=== PATIENT | female | born 1965 | race African-American/Black ===

== ENCOUNTER 2018-06-08 09:00 | Inpatient (IN) | payer OTHER ==
[~2018-06-08] VITALS: Ht 182.9 cm; Wt 134.5 kg
[2018-06-08] MEDS ORDERED: IV NORMAL SALINE 1,000ML 1,000 ML IV SCH (09:11)
[2018-06-08 09:28] LABS: BASO % 1 % (0-3); EOS # 0.1 x10^3/uL (0.0-0.7); EOS % 2 % (0-3); HEMATOCRIT 39.3 % (36.0-47.0); HEMOGLOBIN 13.1 g/dL (12.0-15.5); LYMPH # 2.2 x10^3/uL (1.0-4.8); LYMPH % 32 % (24-48); MEAN CORPUSCULAR HEMOGLOBIN 31 pg (25-35); MEAN CORPUSCULAR HGB CONC 33 g/dL (31-37); MEAN CORPUSCULAR VOLUME 92 fL (79-100); MONO # 0.6 x10^3/uL (0.0-1.1); MONO % 8 % (0-9); NEUT # 3.8 x10^3uL (1.8-7.7); NEUT % 57 % (31-73); PLATELET COUNT 192 x10^3/uL (140-400); RED BLOOD COUNT 4.25 x10^6/uL (3.50-5.40); RED CELL DISTRIBUTION WIDTH 13.3 % (11.5-14.5); WHITE BLOOD COUNT 6.7 x10^3/uL (4.0-11.0)
--- NOTE | 2018-06-08 09:30 | PHYS DOC ---
Adult General Chief Complaint Chief Complaint: CHEST PAIN HPI HPI 53-year-old female presents with anterior chest pain. She describes the pain as a throbbing feeling in her central chest. She woke up around 7:30, 2 hours ago with this pain. She went ahead and took her carvedilol and lisinopril, but not aspirin. Patient has had some increasing shortness of breath last couple of days. She denies diaphoresis. She has a history of CHF. She was worked up for CHF at the beginning of this year. 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 Patient says that she has been feeling more uncomfortable the last couple of days. She is sleeping extra pillows. She has also had a dry cough. She believes her lower extremities have been more swollen but they're better today than yesterday. She denies fever or chills. Review of Systems Review of Systems Constitutional: Denies fever or chills [] Eyes: Denies change in visual acuity, redness, or eye pain [] HENT: Denies nasal congestion or sore throat [] Respiratory: shortness of breath [] Cardiovascular: No additional information not addressed in HPI [] GI: Denies abdominal pain, nausea, vomiting, bloody stools or diarrhea [] : Denies dysuria or hematuria [] Musculoskeletal: Denies back pain or joint pain [] Integument: Denies rash or skin lesions [] Neurologic: Denies headache, focal weakness or sensory changes [] Endocrine: Denies polyuria or polydipsia [] All other systems were reviewed and found to be within normal limits, except as documented in this note. Current Medications Current Medications Current Medications Medications (Trade) Dose Ordered Sig/Juan Start Time Stop Time Status Last Admin Dose Admin Aspirin (Children'S Aspirin) 324 mg 1X ONCE 06/08/18 09:45 06/08/18 09:46 06/08/18 09:09 324 MG Sodium Chloride 1,000 ml @ 1,000 mls/hr Q1H 06/08/18 09:11 06/08/18 09:17 DC Allergies Allergies Allergies Coded Allergies Type Severity Reaction Last Updated Verified No Known Drug Allergies 06/08/18 No Physical Exam Physical Exam Constitutional: Well developed, obese, well nourished, no acute distress, non- toxic appearance. [] HENT: Normocephalic, atraumatic, bilateral external ears normal, oropharynx moist, no oral exudates, nose normal. [] Eyes: PERRLA, EOMI, conjunctiva normal, no discharge. [] Neck: Normal range of motion, no tenderness, supple, no stridor. [] Cardiovascular:Heart rate regular rhythm, no murmur [] Lungs & Thorax: Bilateral breath sounds clear to auscultation [] Abdomen: Bowel sounds normal, soft, no tenderness, no masses, no pulsatile masses. [] Skin: Warm, dry, no erythema, no rash. [] Back: No tenderness, no CVA tenderness. [] Extremities: No tenderness, no cyanosis, no clubbing, ROM intact, no edema. [] Neurologic: Alert and oriented X 3, normal motor function, normal sensory function, no focal deficits noted. [] Psychologic: Affect normal, judgement normal, mood normal. [] EKG EKG Sinus rhythm, rate 75, normal axis, intraventricular block, ST elevation in V2 and V3, which is likely due to the block[] Radiology/Procedures Radiology/Procedures [] Impressions: Single view chest 06/08/2018 CLINICAL INDICATION: Chest pain with history of CHF. COMPARISON: None. FINDINGS: Enlargement of the cardiac silhouette with pulmonary venous congestion. No pleural effusion, pneumothorax or focal consolidation IMPRESSION: Findings of CHF or volume overload with cardiomegaly and pulmonary venous congestion. Electronically signed by: Leni Hopkins MD (06/08/2018 9:35 AM) [facility] [place] DICTATED AND SIGNED BY: LENI HOPKINS MD DATE: 06/08/18 0934 CC: RG CABRERA DO; TAMMY WHITMAN ~ Course & Med Decision Making Course & Med Decision Making Pertinent Labs and Imaging studies reviewed. (See chart for details) The patient's EKG shows an intraventricular block. It is otherwise unremarkable. Her chest x-ray shows cardiomegaly and pulmonary congestion, suggesting CHF exacerbation. The patient's labs are remarkable for pro BNP of 1592. I have no previous for comparison. Her creatinine is 1.2. Her troponin is unremarkable. The rest of her labs are unremarkable. We'll give her 40 mg of Lasix IV and admit her to the hospital. Dr. Roman has accepted the patient for admission. [] Dragon Disclaimer Dragon Disclaimer This electronic medical record was generated, in whole or in part, using a voice recognition dictation system. Departure Departure: Referrals: TAMMY WHITMAN (PCP) RG CABRERA DO Jun 08, 2018 09:30
--- NOTE | 2018-06-08 09:39 | RAD ---
Single view chest 06/08/2018 CLINICAL INDICATION: Chest pain with history of CHF. COMPARISON: None. FINDINGS: Enlargement of the cardiac silhouette with pulmonary venous congestion. No pleural effusion, pneumothorax or focal consolidation IMPRESSION: Findings of CHF or volume overload with cardiomegaly and pulmonary venous congestion. Electronically signed by: Kodi Hopkins MD (06/08/2018 9:35 AM) [facility] [place]
[2018-06-08 09:43] LABS: ALBUMIN 3.7 g/dL (3.4-5.0); CALCIUM 8.8 mg/dL (8.5-10.1); CREATININE 1.2 mg/dL (0.6-1.0); GFR 47.4; TOTAL BILIRUBIN 0.5 mg/dL (0.2-1.0); TOTAL PROTEIN 7.3 g/dL (6.4-8.2)
[2018-06-08] MEDS ORDERED: ASPIRIN 81 MG TAB.CHEW PO ONE (09:45)
[2018-06-08] MEDS ORDERED: FUROSEMIDE 40 MG/4 ML VIAL IVP ONE (11:30)
[2018-06-08] MEDS ORDERED: ONDANSETRON PF 4 MG/2 ML VIAL. IV PRN (11:45)
[2018-06-08] MEDS ORDERED: ACETAMINOPHEN 325 MG TABLET PO PRN (12:00)
[2018-06-08 13:00] VITALS: BP 134/93
[2018-06-08] MEDS ORDERED: FURO-69 PO (13:39)
[2018-06-08] MEDS ORDERED: LISI-334 PO (13:45)
--- NOTE | 2018-06-08 15:55 | EKG ---
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
[2018-06-08 19:45] VITALS: BP 136/86
[2018-06-08 23:04] VITALS: BP 126/81
[2018-06-09 03:25] VITALS: BP 136/85
--- NOTE | 2018-06-09 04:23 | PDOC1 ---
History and Physical Date of Admission: Date of Admission: June 08, 2018 Chief Complaint: Chief Complain: CHF Source: Source: Caregiver, Chart review, Patient HPI: HPI: Patient is a 53-year-old female with history of CHF follows with Dr. Gasca at [facility]. States that on Sunday and of this past week she had some intermittent periods of anterior chest pain which she states from her experience is "heart pain." She described it as throbbing not related to exertion no dyspnea diaphoresis arm or neck symptoms. In the ensuing days she has noted leg and abdomen swelling as well as nonproductive cough. She has orthopnea and PND and wanted to come to the emergency department as she described it early so symptoms would not worsen. Nursing reports she was diuresed over a liter since admission and I find the patient sitting up on the edge of her bed in no apparent distress her son was sleeping in a cot. She states that she had an echocardiogram several months ago and her ejection fraction at that time had improved up to 26% from 20% last study. Denies any further chest pain since admission. Past Medical History: Cardiovascular: CHF, HTN Social History: Smoke: No Alcohol: none Drugs: None Allergies: Allergies: Coded Allergies: No Known Drug Allergies (Unverified , 06/08/18) Current Medications: Current Medications: Current Medications Medications (Trade) Dose Ordered Sig/Juan Start Time Stop Time Status Last Admin Dose Admin Acetaminophen (Tylenol) 650 mg PRN Q4HRS PRN 06/08/18 12:00 06/09/18 11:59 06/08/18 12:26 650 MG Aspirin (Children'S Aspirin) 324 mg 1X ONCE 06/08/18 09:45 06/08/18 09:46 DC 06/08/18 09:09 324 MG Furosemide (Lasix) 40 mg 1X ONCE 06/08/18 11:30 06/08/18 11:32 DC 06/08/18 11:36 40 MG Lisinopril (Prinivil) 20 mg DAILY 06/09/18 09:00 06/09/18 09:00 DC Ondansetron HCl (Zofran) 4 mg PRN Q4HRS PRN 06/08/18 11:45 06/09/18 11:44 06/08/18 12:26 4 MG Sodium Chloride 1,000 ml @ 1,000 mls/hr Q1H 06/08/18 09:11 06/08/18 09:17 DC ROS: ROS: Constitutional: No fever or chills Eyes: No eye pain or blurred vision Skin: No rash or itching Cardiovascular: see HPI Respiratory: see HPI Gastrointestinal: No nausea, vomiting, or abdominal pain Neurologic: No headaches or focal neurologic deficits Endocrine: No heat or cold intolerance Genitourinary: No incontinence or hematuria Musculoskeletal: No joint pain or swelling Lymphatics: No enlarged lymph nodes Psychiatric: No anxiety or depression PE: PE: Gen.: Alert, pleasant, no apparent distress HEENT: Normocephalic atraumatic, PERRLA EOMI, no scleral icterus, oral mucosa pink and moist Neck: Supple, no lymphadenopathy, nontender Cardiovascular: Normal S1 and S2 no murmurs Pulmonary: Decreased breath sounds with some rales at the bases with good air movement no respiratory distress Abdomen: Soft nontender non-distended, bowel sounds present no masses Extremities: No clubbing, cyanosis 2+ nonpitting lower extremity edema noted bilaterally Neuro: Alert and oriented 3, cranial nerves II through XII grossly intact, no lateralizing neuro deficits Skin: Warm, dry Vitals: Vitals: Vital Signs Date Time Temp Pulse Resp B/P (MAP) Pulse Ox O2 Delivery O2 Flow Rate FiO2 06/09/18 03:25 98.2 76 18 136/85 (102) 94 Room Air Labs: Labs: Laboratory Tests Test 06/08/18 09:10 06/08/18 14:35 06/08/18 17:49 White Blood Count 6.7 x10^3/uL (4.0-11.0) Red Blood Count 4.25 x10^6/uL (3.50-5.40) Hemoglobin 13.1 g/dL (12.0-15.5) Hematocrit 39.3 % (36.0-47.0) Mean Corpuscular Volume 92 fL (79-100) Mean Corpuscular Hemoglobin 31 pg (25-35) Mean Corpuscular Hemoglobin Concent 33 g/dL (31-37) Red Cell Distribution Width 13.3 % (11.5-14.5) Platelet Count 192 x10^3/uL (140-400) Neutrophils (%) (Auto) 57 % (31-73) Lymphocytes (%) (Auto) 32 % (24-48) Monocytes (%) (Auto) 8 % (0-9) Eosinophils (%) (Auto) 2 % (0-3) Basophils (%) (Auto) 1 % (0-3) Neutrophils # (Auto) 3.8 x10^3uL (1.8-7.7) Lymphocytes # (Auto) 2.2 x10^3/uL (1.0-4.8) Monocytes # (Auto) 0.6 x10^3/uL (0.0-1.1) Eosinophils # (Auto) 0.1 x10^3/uL (0.0-0.7) Basophils # (Auto) 0.0 x10^3/uL (0.0-0.2) Sodium Level 136 mmol/L (136-145) Potassium Level 4.0 mmol/L (3.5-5.1) Chloride Level 103 mmol/L (98-107) Carbon Dioxide Level 26 mmol/L (21-32) Anion Gap 7 (6-14) Blood Urea Nitrogen 18 mg/dL (7-20) Creatinine 1.2 mg/dL (0.6-1.0) Estimated GFR (Cockcroft-Gault) 47.4 BUN/Creatinine Ratio 15 (6-20) Glucose Level 141 mg/dL (70-99) Calcium Level 8.8 mg/dL (8.5-10.1) Total Bilirubin 0.5 mg/dL (0.2-1.0) Aspartate Amino Transf (AST/SGOT) 13 U/L (15-37) Alanine Aminotransferase (ALT/SGPT) 14 U/L (14-59) Alkaline Phosphatase 65 U/L (46-116) Troponin I Quantitative < 0.017 ng/mL (0-0.055) < 0.017 ng/mL (0-0.055) < 0.017 ng/mL (0-0.055) [id number]-[id number]-Type Natriuretic Peptide 1592 pg/mL (0-124) Total Protein 7.3 g/dL (6.4-8.2) Albumin 3.7 g/dL (3.4-5.0) Albumin/Globulin Ratio 1.0 (1.0-1.7) Images: Images: PATIENT: YOELDANAE Vo ACCOUNT: [id number] : 1965 LOCATION: ER AGE: 53 SEX: F EXAM STATUS: PRE ER ORD. PHYSICIAN: RG CABRERA DO REASON: CP PROCEDURE: PORTABLE CHEST 1V Single view chest 06/08/2018 CLINICAL INDICATION: Chest pain with history of CHF. COMPARISON: None. FINDINGS: Enlargement of the cardiac silhouette with pulmonary venous congestion. No pleural effusion, pneumothorax or focal consolidation IMPRESSION: Findings of CHF or volume overload with cardiomegaly and pulmonary venous congestion. Electronically signed by: Leni Hopkins MD (06/08/2018 9:35 AM) [facility] [place] SIGNED BY: LENI HOPKINS MD DATE: 06/08/18 0934 CC: RG CABRERA DO; TAMMY WHITMAN ~ VTE Prophylaxis: VTE Prophylaxis Devices: No VTE Pharmacological Prophylaxi: No (patient is ambulatory) Assessment/Plan: A/P: Acute on chronic presumably diastolic heart failure Chest pain Hypertension Patient has had good response to diuresis. Cardiac enzymes at been negative echocardiogram and cardiology evaluation are pending. JEANNETTE BEARD DO Jun 09, 2018 04:23
[2018-06-09 05:39] VITALS: BP 126/77
[2018-06-09 07:04] LABS: BASO % 1 % (0-3); EOS # 0.2 x10^3/uL (0.0-0.7); EOS % 3 % (0-3); HEMATOCRIT 38.2 % (36.0-47.0); HEMOGLOBIN 12.6 g/dL (12.0-15.5); LYMPH # 1.7 x10^3/uL (1.0-4.8); LYMPH % 30 % (24-48); MEAN CORPUSCULAR HEMOGLOBIN 30 pg (25-35); MEAN CORPUSCULAR HGB CONC 33 g/dL (31-37); MEAN CORPUSCULAR VOLUME 92 fL (79-100); MONO # 0.6 x10^3/uL (0.0-1.1); MONO % 11 % (0-9); NEUT # 3.2 x10^3uL (1.8-7.7); NEUT % 56 % (31-73); PLATELET COUNT 181 x10^3/uL (140-400); RED BLOOD COUNT 4.15 x10^6/uL (3.50-5.40); RED CELL DISTRIBUTION WIDTH 13.5 % (11.5-14.5); WHITE BLOOD COUNT 5.8 x10^3/uL (4.0-11.0)
[2018-06-09 07:12] LABS: CALCIUM 8.9 mg/dL (8.5-10.1); CREATININE 1.2 mg/dL (0.6-1.0); GFR 57.3; POTASSIUM 3.9 mmol/L (3.5-5.1)
[2018-06-09] MEDS ORDERED: CARV3.12 PO (08:24)
[2018-06-09] MEDS ORDERED: ASPI-630 PO (08:24)
[2018-06-09] MEDS ORDERED: FUROSEMIDE 20 MG TABLET PO SCH (09:00)
[2018-06-09] MEDS ORDERED: CARVEDILOL 3.125 MG TABLET PO SCH (09:00)
[2018-06-09] MEDS ORDERED: ASPIRIN 81 MG TAB.CHEW PO SCH (09:00)
[2018-06-09] MEDS ORDERED: LISINOPRIL 20 MG TABLET PO SCH ×2 (09:00)
[2018-06-09 11:23] VITALS: BP 126/78
--- NOTE | 2018-06-09 13:28 | PDOC2 ---
CONSULT Date of Admission DATE: 06/09/18 TIME: 13:22 Reason for Consult: heart failure Referring Physician: Dr. Roman Chief Complaint Shortness of breath Source: Patient Problem List Problems Medical Problems: (1) Acute exacerbation of CHF (congestive heart failure) Status: Acute History of Present Illness The patient is a 53-year-old female who was admitted through the emergency room for episodes of increasing shortness of breath and some chest pressure. The patient has a history of chronic systolic heart failure is followed through the heart failure clinic at [facility]. Most recent ejection fraction reportedly in the mid 20% range. We do not have any further details from [facility]. The patient has been treated with diuresis overnight and is feeling much better. Her troponins have been normal 3. Creatinine is 1.2. BNP is 1592. She's had no further chest discomfort which was associated with her shortness of breath. Her EKG shows a sinus rhythm with a nonspecific interventricular block. She is now resting comfortably in bed. Cardiovascular: CHF, HTN Past Surgical History: No pertinent history Family History: Heart Disease Smoke: No Current Medications Current Medications Aspirin (Children'S Aspirin) 324 mg 1X ONCE PO Last administered on at 09:09; Start 06/08/18 at 09:45; Stop 06/08/18 at 09:46; Status DC Sodium Chloride 1,000 ml @ 1,000 mls/hr Q1H IV ; Start 06/08/18 at 09:11; Stop 06/08/18 at 09:17; Status DC Furosemide (Lasix) 40 mg 1X ONCE IVP Last administered on 06/08/18at 11:36; Start 06/08/18 at 11:30; Stop 06/08/18 at 11:32; Status DC Ondansetron HCl (Zofran) 4 mg PRN Q4HRS PRN IV NAUSEA/VOMITING Last administered on 06/08/18at 12:26; Start 06/08/18 at 11:45; Stop 06/09/18 at 11 :44; Status DC Acetaminophen (Tylenol) 650 mg PRN Q4HRS PRN PO FEVER Last administered on 05/16at 12:26; Start 06/08/18 at 12:00; Stop 06/09/18 at 11:59; Status DC Lisinopril (Prinivil) 20 mg DAILY PO ; Start 06/09/18 at 09:00; Stop 06/09/18 at 09:00; Status DC Furosemide (Lasix) 20 mg DAILY PO Last administered on 06/09/18at 08:53; Start 06/09/18 at 09:00 Lisinopril (Prinivil) 20 mg DAILY PO Last administered on 06/09/18at 08:53; Start 06/09/18 at 09:00 Aspirin (Children'S Aspirin) 81 mg DAILYWBKFT PO Last administered on at 08:53; Start 06/09/18 at 09:00 Carvedilol (Coreg) 3.125 mg BIDWMEALS PO Last administered on 06/09/18at 08:53 ; Start 06/09/18 at 09:00 Active Scripts Active Reported Aspirin 81 Mg Tab.chew 81 Mg PO DAILY Coreg (Carvedilol) 3.125 Mg Tablet 3.125 Mg PO BIDWMEALS Lisinopril 20 Mg Tablet 20 Mg PO DAILY Lasix (Furosemide) 20 Mg Tablet 20 Mg PO DAILY Allergies: Coded Allergies: No Known Drug Allergies (Unverified , 06/08/18) General: YES: Fatigue Respiratory: YES: Shortness of breath, SOB with excertion General: mild distress HEENT: Atraumatic Lungs: Other (mildly decreased breath sounds) Heart: Regular rate Abdomen: Normal bowel sounds VITALS Vital Signs Date Time Temp Pulse Resp B/P (MAP) Pulse Ox O2 Delivery O2 Flow Rate FiO2 06/09/18 11:23 97.9 81 18 126/78 (94) 96 Room Air Labs Laboratory Tests Test 06/08/18 09:10 06/08/18 14:35 06/08/18 17:49 06/09/18 06:28 White Blood Count 6.7 x10^3/uL (4.0-11.0) 5.8 x10^3/uL (4.0-11.0) Red Blood Count 4.25 x10^6/uL (3.50-5.40) 4.15 x10^6/uL (3.50-5.40) Hemoglobin 13.1 g/dL (12.0-15.5) 12.6 g/dL (12.0-15.5) Hematocrit 39.3 % (36.0-47.0) 38.2 % (36.0-47.0) Mean Corpuscular Volume 92 fL (79-100) 92 fL (79-100) Mean Corpuscular Hemoglobin 31 pg (25-35) 30 pg (25-35) Mean Corpuscular Hemoglobin Concent 33 g/dL (31-37) 33 g/dL (31-37) Red Cell Distribution Width 13.3 % (11.5-14.5) 13.5 % (11.5-14.5) Platelet Count 192 x10^3/uL (140-400) 181 x10^3/uL (140-400) Neutrophils (%) (Auto) 57 % (31-73) 56 % (31-73) Lymphocytes (%) (Auto) 32 % (24-48) 30 % (24-48) Monocytes (%) (Auto) 8 % (0-9) 11 % (0-9) Eosinophils (%) (Auto) 2 % (0-3) 3 % (0-3) Basophils (%) (Auto) 1 % (0-3) 1 % (0-3) Neutrophils # (Auto) 3.8 x10^3uL (1.8-7.7) 3.2 x10^3uL (1.8-7.7) Lymphocytes # (Auto) 2.2 x10^3/uL (1.0-4.8) 1.7 x10^3/uL (1.0-4.8) Monocytes # (Auto) 0.6 x10^3/uL (0.0-1.1) 0.6 x10^3/uL (0.0-1.1) Eosinophils # (Auto) 0.1 x10^3/uL (0.0-0.7) 0.2 x10^3/uL (0.0-0.7) Basophils # (Auto) 0.0 x10^3/uL (0.0-0.2) 0.0 x10^3/uL (0.0-0.2) Sodium Level 136 mmol/L (136-145) 137 mmol/L (136-145) Potassium Level 4.0 mmol/L (3.5-5.1) 3.9 mmol/L (3.5-5.1) Chloride Level 103 mmol/L (98-107) 101 mmol/L (98-107) Carbon Dioxide Level 26 mmol/L (21-32) 30 mmol/L (21-32) Anion Gap 7 (6-14) 6 (6-14) Blood Urea Nitrogen 18 mg/dL (7-20) 21 mg/dL (7-20) Creatinine 1.2 mg/dL (0.6-1.0) 1.2 mg/dL (0.6-1.0) Estimated GFR (Cockcroft-Gault) 47.4 57.3 BUN/Creatinine Ratio 15 (6-20) Glucose Level 141 mg/dL (70-99) 119 mg/dL (70-99) Calcium Level 8.8 mg/dL (8.5-10.1) 8.9 mg/dL (8.5-10.1) Total Bilirubin 0.5 mg/dL (0.2-1.0) Aspartate Amino Transf (AST/SGOT) 13 U/L (15-37) Alanine Aminotransferase (ALT/SGPT) 14 U/L (14-59) Alkaline Phosphatase 65 U/L (46-116) Troponin I Quantitative < 0.017 ng/mL (0-0.055) < 0.017 ng/mL (0-0.055) < 0.017 ng/mL (0-0.055) GH-Lfq-W-Type Natriuretic Peptide 1592 pg/mL (0-124) Total Protein 7.3 g/dL (6.4-8.2) Albumin 3.7 g/dL (3.4-5.0) Albumin/Globulin Ratio 1.0 (1.0-1.7) Images Chest x-ray shows congestive heart failure and cardiomegaly. Assessment/Plan 1. Acute on chronic systolic heart failure. Patient is significantly improved clinically post diuresis. She appears to be followed through the heart failure clinic at [facility] and has a return appointment in approximately one week. Troponins have been normal. Agree with continued diuresis. We will increase the patient's activities today. We'll attempt to find records from [facility]. 2. Cardiomegaly on chest x-ray. 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 We'll continue treatment as above. 3. Hypertension. Under better control on present medications. Thank you for allowing us to participate in the care of your patient. TRACEY NAVAS MD Jun 09, 2018 13:28
== END 2018-06-09 14:45 | disposition home or self-care (01) | DRG 293 ==
LOC: ER 09:00 → 1 SOUTH 12:32
PROVIDERS: ADMIT Neuromusculoskeletal Medicine & OMM; ATTEND Neuromusculoskeletal Medicine & OMM
DX: I11.0 Hypertensive heart disease with heart failure (principal); I50.43 Acute on chronic combined systolic (congestive) and diastolic (congestive) heart failure; I45.4 Nonspecific intraventricular block; Z82.49 Family history of ischemic heart disease and other diseases of the circulatory system
CPT/HCPCS: 36415; 71045; 80048; 80053; 83880; 84484; 85025; 90471; 90756; 93005; 96374; 96375; J1940; J2405; 99285-25; Q2035

== ENCOUNTER 2018-07-14 06:47 | Emergency (ER) | payer OTHER ==
[~2018-07-14] VITALS: Ht 182.9 cm; Wt 136.0 kg
[~2018-07-14 06:47] MED LIST: ASPI-630 PO; CARV3.12 PO; FURO-69 PO; LISI-334 PO
[2018-07-14] MEDS ORDERED: ASPIRIN 81 MG TAB.CHEW PO ONE (07:00)
--- NOTE | 2018-07-14 07:21 | PHYS DOC ---
Past History Past Medical History: Arrhythmia, CHF, Hypertension Past Surgical History: Pacemaker, Other Alcohol Use: None Drug Use: None Adult General Chief Complaint Chief Complaint: CHEST PAIN HPI HPI 53-year-old female presents with chest pain. The patient had a pacemaker placed 13 days ago. She woke up this morning with some bruising in her to the incision site and a chest discomfort that she rated an 8 out of 10. It has improved in the ER to 5 out of 10. She denies shortness of breath or diaphoresis. She called her surgeon about the bruising and they advised that she come to the emergency room if the area was hard. The area is firm and she is having pain so she came to the emergency room patient denies nausea, vomiting, cough, URI symptoms. She denies fever or chills. Review of Systems Review of Systems Constitutional: Denies fever or chills [] Eyes: Denies change in visual acuity, redness, or eye pain [] HENT: Denies nasal congestion or sore throat [] Respiratory: Denies cough or shortness of breath [] Cardiovascular: No additional information not addressed in HPI [] GI: Denies abdominal pain, nausea, vomiting, bloody stools or diarrhea [] : Denies dysuria or hematuria [] Musculoskeletal: Denies back pain or joint pain [] Integument: bruising left chest[] Neurologic: Denies headache, focal weakness or sensory changes [] Endocrine: Denies polyuria or polydipsia [] All other systems were reviewed and found to be within normal limits, except as documented in this note. Current Medications Current Medications Current Medications Medications (Trade) Dose Ordered Sig/[facility] Start Time Stop Time Status Last Admin Dose Admin Aspirin (Children'S Aspirin) 324 mg 1X ONCE 07/14/18 07:00 07/14/18 07:03 [place] Allergies Allergies Allergies Coded Allergies Type Severity Reaction Last Updated Verified No Known Drug Allergies 06/08/18 No Physical Exam Physical Exam Constitutional: Well developed, well nourished, no acute distress, non-toxic appearance. [] HENT: Normocephalic, atraumatic, bilateral external ears normal, oropharynx moist, no oral exudates, nose normal. [] Eyes: PERRLA, EOMI, conjunctiva normal, no discharge. [] Neck: Normal range of motion, no tenderness, supple, no stridor. [] Cardiovascular:Heart rate regular rhythm, no murmur [] Lungs & Thorax: Bilateral breath sounds clear to auscultation. Some chest wall tenderness over pacemaker site. [] Abdomen: Bowel sounds normal, soft, no tenderness, no masses, no pulsatile masses. [] Skin: Ecchymosis of the left mid chest and superior breast just below pacemaker. [] Back: No tenderness, no CVA tenderness. [] Extremities: No tenderness, no cyanosis, no clubbing, ROM intact, no edema. [] Neurologic: Alert and oriented X 3, normal motor function, normal sensory function, no focal deficits noted. [] Psychologic: Affect normal, judgement normal, mood normal. [] Current Patient Data Vital Signs Vital Signs Date Time Temp Pulse Resp B/P (MAP) Pulse Ox O2 Delivery O2 Flow Rate FiO2 07/14/18 06:47 98.1 88 18 97 Room Air EKG EKG Paced rhythm, rate 89, normal axis, no ST elevations or depressions[] Radiology/Procedures Radiology/Procedures [] Impressions: Chest radiograph 07/14/2018 6:27 AM INDICATION: Chest pain COMPARISON: June 08, 2018 TECHNIQUE: Frontal view of the chest is provided. FINDINGS: The cardiomediastinal silhouette is enlarged, stable. New left chest wall cardiac device is identified with leads projecting over the right atrium, right ventricle and coronary sinus. There are no pleural effusions. There is no pulmonary vascular congestion. There is no pneumothorax. The lungs are clear. No significant osseous abnormality is identified. IMPRESSION: No acute cardiopulmonary process. New left chest wall cardiac device is identified with leads projecting over the right atrium, right ventricle and coronary sinus. No pneumothorax. Electronically signed by: Dilip Baker MD (07/14/2018 7:41 AM) [facility] DICTATED AND SIGNED BY: DILIP BAKER MD DATE: 07/14/18 0740 CC: RG CABRERA DO; TAMMY WHITMAN Left upper chest ultrasound 07/14/2018 INDICATION: Left breast/upper chest bruising. COMPARISON: None available TECHNIQUE: Sonographic evaluation of the left upper chest is performed utilizing grayscale and color Doppler. FINDINGS: There is a fluid collection superior to the incision measuring 1.9 x 4.6 x 0.8 cm. There is minimal loculation identified. No significant surrounding hyperemia. There is mild subcutaneous edema. IMPRESSION: Area corresponding to an area of bruising visualized clinically is probably cystic with measurements of 1.9 x 4.6 x 0.8 cm. Findings most favor a hematoma. Superimposed infection is a differential consideration if clinically suspected. Electronically signed by: Dilip Baker MD (07/14/2018 8:39 AM) [facility] DICTATED AND SIGNED BY: DILIP BAKER MD DATE: 07/14/18 0837 CC: RG CABRERA DO; TAMMY WHITMAN Course & Med Decision Making Course & Med Decision Making Pertinent Labs and Imaging studies reviewed. (See chart for details) She is labs are unremarkable. Her EKG. Her chest x-ray is unremarkable. Ultrasound of the chest shows a 4.6 cm x 2 cm likely hematoma. Infection is in the differential however the patient does not have a fever and has no evidence of infection or blood work. It seems most likely that this is simple hematoma. Her pain is likely due to some spontaneous leakage. The patient is feeling better at this time. She is reassured by her results. She is stable for discharge. [] Dragon Disclaimer Dragon Disclaimer This electronic medical record was generated, in whole or in part, using a voice recognition dictation system. Departure Departure: Referrals: TAMMY WHITMAN (PCP) RG CABRERA DO Jul 14, 2018 07:21
[2018-07-14 07:23] LABS: BASO # 0.1 x10^3/uL (0.0-0.2); BASO % 1 % (0-3); EOS # 0.2 x10^3/uL (0.0-0.7); EOS % 2 % (0-3); HEMATOCRIT 36.1 % (36.0-47.0); HEMOGLOBIN 11.8 g/dL (12.0-15.5); LYMPH # 2.1 x10^3/uL (1.0-4.8); LYMPH % 28 % (24-48); MEAN CORPUSCULAR HEMOGLOBIN 30 pg (25-35); MEAN CORPUSCULAR HGB CONC 33 g/dL (31-37); MEAN CORPUSCULAR VOLUME 92 fL (79-100); MONO # 0.7 x10^3/uL (0.0-1.1); MONO % 9 % (0-9); NEUT # 4.3 x10^3uL (1.8-7.7); NEUT % 59 % (31-73); PLATELET COUNT 232 x10^3/uL (140-400); RED BLOOD COUNT 3.93 x10^6/uL (3.50-5.40); RED CELL DISTRIBUTION WIDTH 13.2 % (11.5-14.5); WHITE BLOOD COUNT 7.3 x10^3/uL (4.0-11.0)
[2018-07-14 07:37] LABS: ALBUMIN 3.8 g/dL (3.4-5.0); CALCIUM 9.1 mg/dL (8.5-10.1); GFR 70.7; POTASSIUM 4.1 mmol/L (3.5-5.1); TOTAL BILIRUBIN 0.5 mg/dL (0.2-1.0); TOTAL PROTEIN 7.6 g/dL (6.4-8.2)
--- NOTE | 2018-07-14 07:45 | RAD ---
Chest radiograph 07/14/2018 6:27 AM INDICATION: Chest pain COMPARISON: June 08, 2018 TECHNIQUE: Frontal view of the chest is provided. FINDINGS: The cardiomediastinal silhouette is enlarged, stable. New left chest wall cardiac device is identified with leads projecting over the right atrium, right ventricle and coronary sinus. There are no pleural effusions. There is no pulmonary vascular congestion. There is no pneumothorax. The lungs are clear. No significant osseous abnormality is identified. IMPRESSION: No acute cardiopulmonary process. New left chest wall cardiac device is identified with leads projecting over the right atrium, right ventricle and coronary sinus. No pneumothorax. Electronically signed by: Portia Baker MD (07/14/2018 7:41 AM) [facility]
--- NOTE | 2018-07-14 08:43 | RAD ---
Left upper chest ultrasound 07/14/2018 INDICATION: Left breast/upper chest bruising. COMPARISON: None available TECHNIQUE: Sonographic evaluation of the left upper chest is performed utilizing grayscale and color Doppler. FINDINGS: There is a fluid collection superior to the incision measuring 1.9 x 4.6 x 0.8 cm. There is minimal loculation identified. No significant surrounding hyperemia. There is mild subcutaneous edema. IMPRESSION: Area corresponding to an area of bruising visualized clinically is probably cystic with measurements of 1.9 x 4.6 x 0.8 cm. Findings most favor a hematoma. Superimposed infection is a differential consideration if clinically suspected. Electronically signed by: Portia Baker MD (07/14/2018 8:39 AM) [facility]
[2018-07-14 09:00] VITALS: BP 139/95
--- NOTE | 2018-07-14 09:37 | EKG ---
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
== END 2018-07-14 09:15 | disposition home or self-care (01) ==
LOC: ER 06:47
DX: S20.212A Contusion of left front wall of thorax, initial encounter (principal); I11.0 Hypertensive heart disease with heart failure; I50.9 Heart failure, unspecified; Z95.0 Presence of cardiac pacemaker; X58.XXXA Exposure to other specified factors, initial encounter; Y93.89 Activity, other specified; Y92.89 Other specified places as the place of occurrence of the external cause; Y99.8 Other external cause status
CPT/HCPCS: 36415; 71045; 76604; 80053; 84484; 85025; 93005; 99284-25

== ENCOUNTER 2018-12-15 21:40 | Emergency (ER) | payer OTHER ==
[~2018-12-15] VITALS: Ht 182.9 cm; Wt 133.8 kg
--- NOTE | 2018-12-15 22:10 | PHYS DOC ---
Past History Past Medical History: Arrhythmia, CHF, Hypertension Past Surgical History: Pacemaker, Other Alcohol Use: None Drug Use: None Adult General Chief Complaint Chief Complaint: SHORTNESS OF BREATH HPI HPI Patient is a 53-year-old female who presents with complaint of productive cough and shortness of breath that has been developing over the last couple of weeks. She states that initially she thought her symptoms were starting to improve about a week ago but states that around 4 days ago symptoms started getting worse again. She denies any chest pain. She does indicate that she has orthopnea and states that she has to sleep on a number of pillows at night. She also indicates that the cough wakes her up in the middle of the night frequently. Patient is not aware of any fever. She indicates symptoms are worsened with exertion.[] Review of Systems Review of Systems Constitutional: Denies fever or chills [] Respiratory: Positive cough and shortness of breath [] Cardiovascular: No additional information not addressed in HPI [] GI: Denies abdominal pain, nausea, vomiting or diarrhea [] Integument: Denies rash or skin lesions [] Neurologic: Denies headache, focal weakness or sensory changes [] All other systems were reviewed and found to be within normal limits, except as documented in this note. Allergies Allergies Allergies Coded Allergies Type Severity Reaction Last Updated Verified No Known Drug Allergies 06/08/18 No Physical Exam Physical Exam Constitutional: Well developed, well nourished, no acute distress, non-toxic appearance. [] HENT: Normocephalic, atraumatic, bilateral external ears normal, oropharynx moist, no oral exudates, nose normal. [] Eyes: PERRLA, EOMI, conjunctiva normal, no discharge. [] Neck: Normal range of motion, no tenderness, supple. [] Cardiovascular: Regular rate and rhythm[] Lungs & Thorax: Fine rhonchi are noted in the right lung base to auscultation [] Abdomen: Bowel sounds normal, soft, no tenderness. [] Skin: Warm, dry, no erythema, no rash. [] Extremities: No tenderness, no cyanosis, no clubbing, ROM intact, with lower extremity nonpitting edema. [] Neurologic: Alert and oriented X 3, no focal deficits noted. [] Current Patient Data Vital Signs Vital Signs Date Time Temp Pulse Resp B/P (MAP) Pulse Ox O2 Delivery O2 Flow Rate FiO2 12/15/18 21:58 98.4 77 18 97 Room Air EKG EKG EKG demonstrates normal sinus rhythm with rate of 75.[] Radiology/Procedures Radiology/Procedures [] Impressions: Two-view chest x-ray demonstrates no acute process. Course & Med Decision Making Course & Med Decision Making Pertinent Labs and Imaging studies reviewed. (See chart for details) [] Dragon Disclaimer Dragon Disclaimer This electronic medical record was generated, in whole or in part, using a voice recognition dictation system. Departure Departure: Impression: Primary Impression: Acute bronchitis Disposition: HOME, SELF-CARE Condition: STABLE Referrals: TAMMY WHITMAN (PCP) Patient Instructions: Acute Bronchitis Scripts Furosemide (LASIX) 20 Mg Tablet 1 TAB PO DAILY for edema, #7 TAB Prov: JODY RAMIREZ Jr. DO 12/15/18 Guaifenesin/Codeine Phosphate (CHERATUSSIN AC SYRUP) 118 Ml Liquid 5 ML PO PRN Q6HRS PRN for COUGH, #120 ML Prov: JODY RAMIREZ Jr. DO 12/15/18 Amoxicillin/Potassium Clav (AUGMENTIN 875-125 TABLET) 1 Each Tablet 1 TAB PO BID for infection, #20 TAB Prov: JODY RAMIREZ Jr. DO 12/15/18 Problem Qualifiers Primary Impression: Acute bronchitis Bronchitis organism: unspecified organism Qualified Codes: J20.9 - Acute bronchitis, unspecified JODY RAMIREZ Jr. DO December 15, 2018 22:10
--- NOTE | 2018-12-15 22:17 | EKG ---
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
[2018-12-15 22:33] LABS: BASO # 0.1 x10^3/uL (0.0-0.2); BASO % 1 % (0-3); EOS # 0.1 x10^3/uL (0.0-0.7); EOS % 2 % (0-3); HEMATOCRIT 37.3 % (36.0-47.0); HEMOGLOBIN 12.3 g/dL (12.0-15.5); LYMPH # 2.5 x10^3/uL (1.0-4.8); LYMPH % 35 % (24-48); MEAN CORPUSCULAR HEMOGLOBIN 30 pg (25-35); MEAN CORPUSCULAR HGB CONC 33 g/dL (31-37); MEAN CORPUSCULAR VOLUME 90 fL (79-100); MONO # 0.6 x10^3/uL (0.0-1.1); MONO % 9 % (0-9); NEUT # 3.9 x10^3uL (1.8-7.7); NEUT % 53 % (31-73); PLATELET COUNT 185 x10^3/uL (140-400); RED BLOOD COUNT 4.14 x10^6/uL (3.50-5.40); RED CELL DISTRIBUTION WIDTH 13.2 % (11.5-14.5); WHITE BLOOD COUNT 7.3 x10^3/uL (4.0-11.0)
[2018-12-15 23:23] LABS: ALBUMIN 3.6 g/dL (3.4-5.0); ALBUMIN/GLOBULIN RATIO 0.9 (1.0-1.7); CALCIUM 9.3 mg/dL (8.5-10.1); CREATININE 1.2 mg/dL (0.6-1.0); GFR 57.3; POTASSIUM 3.5 mmol/L (3.5-5.1); TOTAL BILIRUBIN 0.4 mg/dL (0.2-1.0); TOTAL PROTEIN 7.8 g/dL (6.4-8.2)
[2018-12-15] MEDS ORDERED: BENZONATATE 100 MG CAPSULE. PO ONE (23:30)
[2018-12-15] MEDS ORDERED: AMOX1TAB61 PO (23:32)
[2018-12-15] MEDS ORDERED: FURO-69 PO (23:32)
[2018-12-15] MEDS ORDERED: GUAI118L20 PO (23:32)
[2018-12-15] MEDS ORDERED: cefTRIAXone SODIUM 1 GM VIAL ONE (23:38)
[2018-12-15 23:55] VITALS: BP 159/90
--- NOTE | 2018-12-16 02:00 | RAD ---
PA and lateral chest. HISTORY: Cough, congestion, dyspnea PA and lateral views were taken of the chest. The heart is enlarged without heart failure. Left pacemaker is unchanged. There are 3 pacing leads without change. There is linear scarring in the right lung base. There is no pneumothorax or pleural effusion. There are no acute infiltrates. IMPRESSION: 1. No acute infiltrates. 2. Cardiomegaly. Electronically signed by: Hayder Baer MD (12/16/2018 1:57 AM) [facility]
== END 2018-12-16 00:10 | disposition home or self-care (01) ==
LOC: ER 21:40
DX: J20.9 Acute bronchitis, unspecified (principal); I11.0 Hypertensive heart disease with heart failure; I50.9 Heart failure, unspecified; Z95.0 Presence of cardiac pacemaker
CPT/HCPCS: 36415; 71046; 80053; 83880; 84484; 85025; 93005; 96374; 99285; J0696

== ENCOUNTER 2020-08-21 09:38 | Emergency (ER) | payer MEDICARE, OTHER ==
[~2020-08-21] VITALS: Ht 182.9 cm; Wt 136.0 kg
[~2020-08-21 09:38] MED LIST changes: +AMOX1TAB61 PO; +GUAI118L20 PO
[2020-08-21 09:41] VITALS: BP 141/71
[2020-08-21] MEDS ORDERED: GUAI400T78 PO (10:54)
[2020-08-21] MEDS ORDERED: ACET15SO6 EACH EAR (10:54)
--- NOTE | 2020-08-21 10:55 | PHYS DOC ---
Past History Past Medical History: Arrhythmia, CHF, Hypertension Past Surgical History: Pacemaker, Other Alcohol Use: None Drug Use: None General Adult EDM: Chief Complaint: EARACHE/EAR PAIN HPI: HPI: Patient is a 55-year-old female coming in for about 7 to 10 days of bilateral ear pain. Patient also states she has had congestion or rhinorrhea. Says the pain is worse on the right is concerned about ear infection. Denies any history of recurrent ear infections in the past. Denies any drainage from ears. Says she sometimes feels a "popping" when waking up in the morning. Denies any loss of hearing, tinnitus, fevers, headaches. States she otherwise has been well. Has not tried taking anything due to concerns for interactions with her other medications and comorbidities. Review of Systems: Review of Systems: All other systems within normal limits except for as noted in the HPI Allergies: Allergies: Allergies Coded Allergies Type Severity Reaction Last Updated Verified No Known Drug Allergies 06/08/18 No Physical Exam: PE: Constitutional: Well developed, well nourished, no acute distress, non-toxic appearance. [] HENT: Normocephalic, atraumatic, bilateral external ears normal, no pain on movement of the tragus or clinical of the ear, bilateral effusions without erythema or bulging of the tympanic membrane, large amounts of cerumen in bilateral ears but nonocclusive, no erythema of ear canal. Nose normal. [] Eyes: PERRLA, conjunctiva normal, no discharge. [] Neck: No rigidity, supple, no stridor. [] Cardiovascular: Regular rate and rhythm, brisk cap refill [] Lungs & Thorax: Non labored symmetric respirations, no tachypnea or respiratory distress [] Abdomen: Soft, nondistended. Skin: Warm, dry, no erythema, no rash. [] Back: Unremarkable Extremities: No deformities, range of motion grossly intact, no lower extremity edema [] Neurologic: Alert and oriented X 3, no focal deficits noted. [] Psychologic: Affect normal, judgement normal, mood normal. [] Current Patient Data: Vital Signs: Vital Signs Date Time Temp Pulse Resp B/P (MAP) Pulse Ox O2 Delivery O2 Flow Rate FiO2 08/21/20 09:41 97.9 66 16 141/71 (94) 95 Room Air EKG: EKG: [] Radiology/Procedures: Radiology/Procedures: [] Heart Score: Risk Factors: Risk Factors: DM, Current or recent (<one month) smoker, HTN, HLP, family history of CAD, obesity. Risk Scores: Score 0 - 3: 2.5% MACE over next 6 weeks - Discharge Home Score 4 - 6: 20.3% MACE over next 6 weeks - Admit for Clinical Observation Score 7 - 10: 72.7% MACE over next 6 weeks - Early Invasive Strategies Course & Med Decision Making: Course & Med Decision Making No signs of infection, discussed treatment of congestion and effusions. [] Dragon Disclaimer: Dragon Disclaimer: This electronic medical record was generated, in whole or in part, using a voice recognition dictation system. Departure Departure: Impression: Primary Impression: Excessive cerumen in both ear canals Additional Impression: Middle ear effusion Disposition: 01 DC HOME SELF CARE/HOMELESS Condition: STABLE Referrals: TAMMY WHITMAN (PCP) Patient Instructions: Acetic Acid ear solution Additional Instructions: May use [id number] nasal flushes. Take guaifenesin and increase water intake to help promote relief of congestion. Scripts Guaifenesin (GUAIFENESIN) 400 Mg Tablet 1 TAB PO TID PRN for CONGESTION for 7 Days, #21 TAB 0 Refills Prov: MAYDA KING MD 08/21/20 Acetic Acid (ACETIC ACID) 15 Ml Solution 4 DROP EACH EAR BID for ear wax removal for 7 Days, #15 ML 0 Refills Prov: MAYDA KING MD 08/21/20 MAYDA KING MD Aug 21, 2020 10:55
== END 2020-08-21 11:08 | disposition home or self-care (01) ==
LOC: ER 09:38
DX: H61.23 Impacted cerumen, bilateral (principal); H92.03 Otalgia, bilateral; J34.89 Other specified disorders of nose and nasal sinuses; R09.81 Nasal congestion; I11.0 Hypertensive heart disease with heart failure; I50.9 Heart failure, unspecified; Z95.0 Presence of cardiac pacemaker
CPT/HCPCS: 99282

== ENCOUNTER 2021-01-26 21:15 | Emergency (ER) | payer MEDICARE, OTHER ==
[~2021-01-26] VITALS: Ht 182.9 cm; Wt 140.1 kg
[~2021-01-26 21:15] MED LIST changes: +ACET15SO6 EACH EAR; +AMIO200T7 PO; +CARV12.5 PO; +GUAI400T78 PO; -LISI-334 PO; +LISI20TA18 PO; +SPIR25TA5 PO
--- NOTE | 2021-01-26 21:38 | PHYS DOC ---
Past History Past Medical History: Arrhythmia, CAD, CHF, Hypertension, DC, Other Additional Past Medical Histor: plantar fasciitis Past Surgical History: Hysterectomy, Pacemaker (Defibrillator) Smoking: Non-smoker Alcohol Use: None Drug Use: None General Adult EDM: Chief Complaint: LOWER EXTREMITY EDEMA HPI: HPI: Patient is a 56 year old female who presents with bilateral lower extremity edema. Patient has a history of CHF and has a pacemaker defibrillation. She says the leg swelling has gotten worse over the last few days and she was unable to wear her shoes this morning. She states she has been unable to lay down to sleep and has to be propped up on pillows. She describes a dry cough that comes on when she leans back. She is on fluid restriction. She is concerned that she is getting fluid accumulation in her abdomen as well. Patient called her pet handler's office and was told to double up on her furosemide. She took 40mg furosemide few hours before arrival. She denies chest pain or palpitations but does have shortness of breath. Denies any fever or chills. Denies history of DVT/PE. Review of Systems: Review of Systems: Constitutional: Denies fever or chills Eyes: Denies redness or eye pain HENT: Denies nasal congestion or sore throat Respiratory: Mild dry cough and shortness of breath and orthopnea Cardiovascular: Denies chest pain or palpitations. +2 bilateral lower extremity edema up to the knees. GI: Denies abdominal pain, nausea, or vomiting Musculoskeletal: Denies back pain; reports bilateral lower discomfort secondary to edema Integument: Denies rash or skin lesions Neurologic: Denies headache, focal weakness or sensory changes Complete systems were reviewed and found to be within normal limits, except as documented in this note. Current Medications: Current Meds: Carvedilol 25mg Prasugrel 20 mg Lisinopril 20mg Furosemide 20mg Spironolactone 20mg Allergies: Allergies: Allergies Coded Allergies Type Severity Reaction Last Updated Verified No Known Drug Allergies 01/26/21 No Physical Exam: PE: Constitutional: Well developed, obese, no acute distress, non-toxic appearance HENT: Normocephalic, atraumatic Eyes: PERRL, conjunctiva normal, no discharge Neck: Normal range of motion, no tenderness, supple Lungs & Thorax: Shortness of breath, equal chest rise and fall Abdomen: Soft, obese, no tenderness Skin: Warm, dry, no erythema, no rash Back: No tenderness, no CVA tenderness Extremities: bilateral +2 edema to the knees, tenderness to palpation Neurologic: Alert and oriented X 3, normal motor function, normal sensory function, no focal deficits noted Psychologic: Affect normal, judgment normal EKG: EKG: @2147 Sinus rhythm at 66bpm, non specific intraventricular block vs paced QRS 162 ms QT 496 ms QTc 522 ms Radiology/Procedures: Radiology/Procedures: PROCEDURE: PORTABLE CHEST 1V XR CHEST 1V History: Reason: cough, eval for vascular overload, hx of CHF / Spl. Instructions: / History: Comparison: December 03, 2020 Findings: No consolidation or pleural effusion. Normal heart size. No pneumothorax. Stable left-sided pacemaker/ICD. Impression: 1. No acute cardiopulmonary process. Electronically signed by: Charli Kent DO (01/26/2021 9:49 PM) [facility] Heart Score: C/O Chest Pain: No Course & Med Decision Making: Course & Med Decision Making Pertinent Labs and Imaging studies reviewed. (See chart for details) Patient presents with bilateral lower extremity edema. She has a history of CHF. She doubled her dose of furosemide few hours before coming to the ED, per her pet handler's office. Labs show normal troponin and BNP. Chest x-ray without acute process. Wells criteria score 0, likelihood of DVT low. Patient stable for discharge with outpatient follow-up with PCP/cardiology. Discussed findings and plan with patient, who acknowledges understanding and agreement. Justin Disclaimer: Justin Disclaimer: This electronic medical record was generated, in whole or in part, using a voice recognition dictation system. Departure Departure: Impression: Primary Impression: Peripheral edema Disposition: HOME / SELF CARE / HOMELESS Condition: STABLE Referrals: TAMMY WHITMAN (PCP) Patient Instructions: Peripheral Edema Additional Instructions: Please follow closely with your PCP and/or Apprentice Architect for further evaluation and treatment. Elevated legs. Wear compression stockings to help prevent edema. Increase Lasix dose to 40mg prior to follow up with PCP and/or Apprentice Architect. DEBBIE VELÁSQUEZ DO Jan 26, 2021 21:38
--- NOTE | 2021-01-26 21:52 | RAD ---
XR CHEST 1V History: Reason: cough, eval for vascular overload, hx of CHF / Spl. Instructions: / History: Comparison: December 03, 2020 Findings: No consolidation or pleural effusion. Normal heart size. No pneumothorax. Stable left-sided pacemaker /ICD. Impression: 1. No acute cardiopulmonary process. Electronically signed by: Charli Kent DO (01/26/2021 9:49 PM) [facility]
--- NOTE | 2021-01-26 21:57 | EKG ---
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
[2021-01-26 22:16] LABS: BASO # 0.1 x10^3/uL (0.0-0.2); BASO % 2 % (0-3); EOS # 0.1 x10^3/uL (0.0-0.7); EOS % 1 % (0-3); HEMATOCRIT 31.5 % (36.0-47.0); HEMOGLOBIN 10.3 g/dL (12.0-15.5); LYMPH # 2.6 x10^3/uL (1.0-4.8); LYMPH % 26 % (24-48); MEAN CORPUSCULAR HEMOGLOBIN 31 pg (25-35); MEAN CORPUSCULAR HGB CONC 33 g/dL (31-37); MEAN CORPUSCULAR VOLUME 95 fL (79-100); MONO # 0.8 x10^3/uL (0.0-1.1); MONO % 9 % (0-9); NEUT # 6.1 x10^3uL (1.8-7.7); NEUT % 62 % (31-73); PLATELET COUNT 173 x10^3/uL (140-400); RED CELL DISTRIBUTION WIDTH 14.2 % (11.5-14.5); WHITE BLOOD COUNT 9.8 x10^3/uL (4.0-11.0)
[2021-01-26 22:18] LABS: CALCIUM 8.9 mg/dL (8.5-10.1); CREATININE 1.7 mg/dL (0.6-1.0); GFR 37.9; POTASSIUM 4.4 mmol/L (3.5-5.1)
[2021-01-26 22:35] LABS: ALBUMIN/GLOBULIN RATIO 1.3 (1.0-1.7); TOTAL BILIRUBIN 0.3 mg/dL (0.2-1.0)
[2021-01-26 23:00] VITALS: BP 125/66
== END 2021-01-26 23:26 | disposition home or self-care (01) ==
LOC: ER 21:15
DX: R60.0 Localized edema (principal); R05 Cough; I25.10 Atherosclerotic heart disease of native coronary artery without angina pectoris; I11.0 Hypertensive heart disease with heart failure; I50.9 Heart failure, unspecified; I25.2 Old myocardial infarction; Z95.0 Presence of cardiac pacemaker
CPT/HCPCS: 36415; 71045; 80053; 82553; 83735; 83880; 84484; 85025; 93005; 99285-25

== ENCOUNTER 2021-05-07 03:20 | Emergency (ER) | payer MEDICARE, MEDICAID ==
[~2021-05-07] VITALS: Ht 182.9 cm; Wt 140.1 kg
--- NOTE | 2021-05-07 03:37 | PHYS DOC ---
Past History Past Medical History: Arrhythmia, CAD, CHF, Hypertension, [place], Other Additional Past Medical Histor: plantar fasciitis, arrhythmia (JAMES ROSALES MD) Past Surgical History: Hysterectomy, Pacemaker (JAMES ROSALES MD) Smoking: Non-smoker Alcohol Use: None Drug Use: None (JAMES ROSALES MD) Adult General Chief Complaint Chief Complaint: CHEST PAIN HPI HPI Patient is a 56-year-old female who presents with chest pain, substernal, dull and achy in nature with no radiation, 7 out of 10 initially with no identifiable aggravating or alleviating factors. States she has had this happen before, years ago when she had her heart attack. States that it lasted about 30 to 45 minutes and slowly subsided. States that now it is about a 1. Denies headache, changes in vision, shortness of breath, abdominal pain, nausea, vomiting, dysuria, hematuria or blood in stool. Dad states that during this time of chest pain she had significant sweating which is unusual for her. (JAMES ROSALES MD) Review of Systems Review of Systems Review of systems otherwise unremarkable except noted in HPI (JAMES ROSALES MD) Allergies Allergies Allergies Coded Allergies Type Severity Reaction Last Updated Verified No Known Drug Allergies 01/26/21 No (JAMES ROSALES MD) Physical Exam Physical Exam Constitutional: Well developed, well nourished, no acute distress, non-toxic appearance. [] HENT: Normocephalic, atraumatic, bilateral external ears normal, oropharynx moist, no oral exudates, nose normal. [] Eyes: conjunctiva normal, no discharge. [] Neck: Normal range of motion, no tenderness, supple, no stridor. [] Cardiovascular:Heart rate regular rhythm, no murmur [] Lungs & Thorax: Bilateral breath sounds clear to auscultation [] Abdomen: Bowel sounds normal, soft, no tenderness, no masses, no pulsatile masses. [] Skin: Warm, dry, no erythema, no rash. [] Back: No tenderness, no CVA tenderness. [] Extremities: No tenderness, no cyanosis, no clubbing, ROM intact, no edema. [] Neurologic: Alert and oriented X 3, normal motor function, normal sensory function, no focal deficits noted. [] Psychologic: Affect normal, judgement normal, mood normal. [] (JAMES ROSALES MD) EKG EKG Rate of 63, QRS of 134, QTc of 509, no STEMI, left bundle branch block. [] (JAMES ROSALES MD) Radiology/Procedures Radiology/Procedures [] (JAMES ROSALES MD) Radiology/Procedures IMAGING REPORT Signed PATIENT: DANAE DIALLOOUNT: [id number] : 1965 LOCATION: ER AGE: 56 SEX: F EXAM STATUS: REG ER ORD. PHYSICIAN: JAMES ROSALES MD REASON: OMNI 350, 99ML IV. CP, elevated dimer PROCEDURE: CT ANGIOGRAPHY CHEST CTA chest with contrast dated 05/07/2021. (BETHANY IBARRA DO) Heart Score C/O Chest Pain: Yes HEART Score for Chest Pain: HEART Score for Chest Pain Response (Comments) Value History Moderately Suspicious 1 ECG Nonspecific Repolarizatio 1 Age >45 - < 65 1 Risk Factors >3 Risk Factors or Hx CAD 2 Total 5 Risk Factors: Risk Factors: DM, Current or recent (<one month) smoker, HTN, HLP, family history of CAD, obesity. Risk Scores: Risk Factors: DM, Current or recent (<one month) smoker, HTN, HLP, family history of CAD, obesity. (JAMES ROSALES MD) C/O Chest Pain: Yes HEART Score for Chest Pain: HEART Score for Chest Pain Response (Comments) Value History Slighlty/Non-Suspicious 0 ECG Nonspecific Repolarizatio 1 Age >45 - < 65 1 Risk Factors >3 Risk Factors or Hx CAD 2 Troponin < Normal Limit 0 Total 4 (BETHANY IBARRA DO) Course & Med Decision Making Course & Med Decision Making Patient is a 56-year-old female who presents with a chief complaint of chest pain Vital signs notable for hypertension. Physical exam noted above. EKG noted above with no STEMI but probable left bundle branch block. Initial troponin normal. Given aspirin. Laboratory analysis otherwise unremarkable except elevated D-dimer. CT angiogram of the chest pending. Discussed findings with patient and recommended 2 more troponins at the 3-hour and 6-hour arpan. Handed off patient care to day team. [] (JAMES ROSALES MD) Course & Med Decision Making On reevaluation, patient asymptomatic, resting comfortably with no chest, back abdominal discomfort. Patient hemodynamically stable. 3 - troponins. Repeat EKG with no new changes. Patient does have a heart score of 5. Patient follows at [facility] with Dr. Arpan Gasca -AICD was placed in 2019 when patient had congestive heart failure exacerbation. I reviewed Dr. Mendoza's note from November 2020-patient with known, nonischemic cardiomyopathy. Pt has been asymptomatic and is requesting to be discharged. I reviewed patient's care and presentation today with Dr. Joya who agrees with outpatient follow-up. Will discharge home with strict ED return precautions were given for chest pressure/pain, syncope, or neurologic deficits. Encouraged urgent outpatient follow-up with PMD and cardiology on Sunday. Life-threatening processes were considered but are low suspicion at this time, given history, physical exam and ED workup. Pt was educated on all prescription medications and adverse effects. All patient's questions were answered and pt was stable at time of discharge. Life/limb-threatening differential includes but is not limited to, acute myocardial infarction, aortic dissection, congestive heart failure, esophageal injury including rupture, surgical abdomen, arrhythmia, cardiomyopathy, myocarditis, pericarditis, peptic ulcer disease, pneumomediastinum, pneumonia, pneumothorax, pulmonary embolus, unstable angina, rib fracture, contusion, pericardial tamponade or effusion, traumatic injury including mediastinal hemorrhage or hematoma, or pulmonary contusion. I have spoken with the patient and/or caregivers. I explained the patient's condition, diagnoses and treatment plan based on the information available to me at this time. I have answered the patient and/or caregiver's questions and addressed any concerns. The patient and/or caregivers have a good understanding of patient's diagnosis, condition and treatment plan as can be expected at this point. Vital signs have been stable. Patient's condition is stable and appropriate for discharge from the emergency department. Patient will pursue further outpatient evaluation with primary care physician or other designated or consulting physician as outlined in the discharge instructions. The patient and/or caregivers are agreeable to this plan of care and follow-up instructions have been explained in detail. The patient and/or caregivers have received these instructions in written form and have expressed an understanding of the discharge instructions. The patient and/or caregivers are aware that any significant change of condition or worsening of symptoms should prompt immediate return to this or the closest emergency department or call to 911. ([facility],BETHANY Nunn DO) Dragon Disclaimer Dragon Disclaimer This electronic medical record was generated, in whole or in part, using a voice recognition dictation system. (JAMES ROSALES MD) Departure Departure: Impression: Primary Impression: Chest pain Disposition: HOME / SELF CARE / HOMELESS Condition: STABLE Referrals: AIDAN GHOTRA MD (PCP) Follow up with your pcp in 1-2 days or [facility] [phone] OR [facility]-Dr. Garduno [phone] Patient Instructions: Chest Pain (Nonspecific) Additional Instructions: YOU HAD AN UNREMARKABLE EKG, 3 NEGATIVE TROPONINS AND A CTA OF THE CHEST THAT SHOWED NO PULMONARY EMBOLUS, MILD CARDIOMEGALY AND SMALL PERICARDIAL EFFUSION FOLLOW UP WITH CARDIOLOGY: FOR DEFINITIVE MANAGEMENT IF UNABLE TO SEE DR. ARPAN WHITMAN ON SUNDAY [facility] [address] [id number] OR [facility] [address] [address] EMERGENCY DEPARTMENT GENERAL DISCHARGE INSTRUCTIONS Thank you for coming to [facility] (ED) today and trusting us with you care. We trust that you had a positivie experience in our Emergency Department. If you wish to speak to the department management, you may call the director at [phone]. YOUR FOLLOW UP INSTRUCTIONS ARE FOLLOWS: 1. Do you have a private Doctor? If you do not have a private doctor, please ask for a resource list of physicians or clinics that may be able to assist you with follow up care. 2. The Emergency Physician has interpreted your x-rays. The X-Ray specialist will also review them. If there is a change in the findings, you will be notified in 48 hours when at all possible. 3. A lab test or culture has been done, your results will be reviewed and you will be notified if you need a change in treatment. ADDITIONAL INSTRUCTIONS AND INFORMATION: 1. Your care today has been supervised by a physician who is specially trained in emergency care. Many problems require more than one evaluation for a complete diagnosis and treatment. We recommend that you schedule your follow up appointment as recommended to ensure complete treatment of you illness or injury. If you are unable to obtain follow up care and continue to have a problem, or if your condition worsens, we recommend that you return to the ED. 2. We are not able to safely determine your condition over the phone nor are we able to give sound medical advice over the phone. For these safety reasons, if you call for medical advice we will ask you to come to the ED for further evaluation. 3. If you have any questions regarding these discharge instructions please call the ED at [phone]. SAFETY INFORMATION: In the interest of safety, wellness, and injury prevention; we encourage you to wear your sealbelt, if you smoke; quite smoking, and we encourage family to use a protective helmet for bicycling and other sporting events that present an increased risk for head injury. IF YOUR SYMPTOMS WORSEN OR NEW SYMPTOMS DEVELOP, OR YOU HAVE CONCERNS ABOUT YOUR CONDITION; OR IF YOUR CONDITION WORSENS WHILE YOU ARE WAITING FOR YOUR FOLLOW UP APPOINTMENT; EITHER CONTACT YOUR PRIMARY CARE DOCTOR, THE PHYSICIAN WHOSE NAME AND NUMBER YOU WERE GIVEN, OR RETURN TO THE ED IMMEDIATELY. JAMES ROSALES MD May 07, 2021 03:37 BETHANY IBARRA DO May 07, 2021 11:43
[2021-05-07] MEDS ORDERED: CARV25TA PO (03:55)
[2021-05-07] MEDS ORDERED: LISI10TA16 PO (03:55)
[2021-05-07] MEDS ORDERED: multivitamin PO (03:55)
[2021-05-07] MEDS ORDERED: FURO-69 PO (03:55)
--- NOTE | 2021-05-07 03:56 | EKG ---
[address] [address] Test Date: 2021-05-07 Test Time: 03:28:37 Pat Name: DANAE DIALLO Department: Room: Gender: F [employer] App[employer]: : 1965 Requested By: JAMES ROSALES Order Number: [id number] Reading MD: Fadi Joya Measurements Intervals [place] Rate: 63 P: 56 [place]: 208 QRS: 11 QRSD: 134 T: 66 QT: 494 QTc: 509 Interpretive Statements ATRIAL-SENSED VENTRICULAR-PACED RHYTHM Electronically Signed On 05-08-2021 16:42:15 CDT by Fadi Joya
[2021-05-07] MEDS ORDERED: NITROGLYCERIN SUBLINGUAL 0.4 MG BOTTLE OF 25. SL PRN (04:00)
--- NOTE | 2021-05-07 04:05 | RAD ---
Single view chest dated 05/07/2021 4:02 AM: COMPARISON: 01/26/2021 Clinical Indication: Chest pain. Findings: Single upright portable exam of the chest was performed. Heart and mediastinal contours are stable. T here is a 3-lead left subclavian pacer/AICD in place, unchanged. Lungs are clear. No consolidation or pleural effusion. No pneumothorax. IMPRESSION: No acute radiographic abnormality. Stable findings compared to 01/26/2021. Electronically signed by: Dread De Leon MD (05/07/2021 4:02 AM) [facility]
[2021-05-07] MEDS ORDERED: ASPIRIN CHEWABLE 81 MG TABLET. PO ONE (04:15)
[2021-05-07 04:23] LABS: BASO # 0.1 x10^3/uL (0.0-0.2); BASO % 1 % (0-3); EOS # 0.1 x10^3/uL (0.0-0.7); EOS % 2 % (0-3); HEMATOCRIT 35.5 % (36.0-47.0); HEMOGLOBIN 11.7 g/dL (12.0-15.5); LYMPH # 2.4 x10^3/uL (1.0-4.8); LYMPH % 33 % (24-48); MEAN CORPUSCULAR HEMOGLOBIN 31 pg (25-35); MEAN CORPUSCULAR HGB CONC 33 g/dL (31-37); MEAN CORPUSCULAR VOLUME 94 fL (79-100); MONO # 0.8 x10^3/uL (0.0-1.1); MONO % 11 % (0-9); NEUT # 3.8 x10^3uL (1.8-7.7); NEUT % 53 % (31-73); PLATELET COUNT 177 x10^3/uL (140-400); RED CELL DISTRIBUTION WIDTH 13.4 % (11.5-14.5); WHITE BLOOD COUNT 7.2 x10^3/uL (4.0-11.0)
[2021-05-07 04:31] LABS: BACTERIA,URINE 0 /HPF (0-FEW); BILIRUBIN,URINE NEG (NEG); CLARITY,URINE CLEAR; COLOR,URINE YELLOW; GLUCOSE,URINE NEG (NEG); NITRITE,URINE NEG (NEG); RBC,URINE 0 /HPF (0-2); SQUAMOUS EPITHELIAL CELL,UR FEW /LPF; UROBILINOGEN,URINE 0.2 mg/dL (0.2 mg/dL); WBC,URINE 0 /HPF (0-4)
[2021-05-07 04:32] LABS: CALCIUM 9.5 mg/dL (8.5-10.1); CREATININE 1.3 mg/dL (0.6-1.0); GFR 51.6; POTASSIUM 4.1 mmol/L (3.5-5.1)
[2021-05-07 04:37] LABS: ALBUMIN 3.9 g/dL (3.4-5.0); ALBUMIN/GLOBULIN RATIO 1.1 (1.0-1.7); TOTAL BILIRUBIN 0.4 mg/dL (0.2-1.0); TOTAL PROTEIN 7.6 g/dL (6.4-8.2)
[2021-05-07] MEDS ORDERED: CONTRAST GIVEN. MC PRN (05:15)
[2021-05-07] MEDS ORDERED: IOHEXOL 350 MG/ML 100 ML VIAL. IV ONE (05:30)
[2021-05-07 06:15] VITALS: BP 131/75
--- NOTE | 2021-05-07 06:17 | RAD ---
CTA chest with contrast dated 05/07/2021. No comparison available. CLINICAL INDICATION: Elevated d-dimer. TECHNIQUE: Contiguous axial imaging the chest was performed following the intravenous administration of 99 cc Om nipaque 350. Study was performed as dedicated PE protocol with thin cut coronal MIPS 3-D reconstructi on. One or more of the following individualized dose reduction techniques were utilized for this examinat ion: 1. Automated exposure control 2. Adjustment of the mA and/or kV according to patient size 3. Use of iterative reconstruction technique. FINDINGS: Heart size mildly enlarged. Tiny pericardial effusion. No mediastinal, hilar or axillary lymphadenopa thy. Thyroid gland unremarkable. Contrast bolus is adequate. No evidence of central, lobar or segmental pulmonary embolus. Subsegmenta l branches are not well evaluated based on technique. Central airways are patent. Mild diffuse bronchial wall thickening. Linear bands of increased density at both lung bases, likely scar or atelectasis. No consolidation or pleural effusion. No pneumothora x. Limited images of upper abdomen are unremarkable. There is a low-density focus at the upper pole left kidney, likely cyst. There is also an exophytic focus off the lateral midpole left kidney that measu res 1.9 cm with Hounsfield value of 46. Bone windows show no acute findings. Multilevel spondylosis. IMPRESSION: 1. No evidence of central, lobar or segmental pulmonary embolus. 2. Linear bibasilar opacity, likely scar or atelectasis. 3. Indeterminate hyperdense nodular focus at the upper pole of left kidney, consistent versus solid m ass. Follow-up ultrasound may provide additional information. 4. Tiny pericardial effusion. Electronically signed by: Dread De Leon MD (05/07/2021 6:15 AM) [facility]
== END 2021-05-07 11:50 | disposition home or self-care (01) ==
LOC: ER 03:20
DX: R07.2 Precordial pain (principal); I11.0 Hypertensive heart disease with heart failure; I50.9 Heart failure, unspecified; I25.10 Atherosclerotic heart disease of native coronary artery without angina pectoris; I25.2 Old myocardial infarction; Z95.0 Presence of cardiac pacemaker
CPT/HCPCS: 36415; 71045; 71275; 80053; 81001; 84484; 85025; 85379; 85610; 85730; 93005; 99284; Q9967

== ENCOUNTER 2021-08-09 12:20 | Emergency (ER) | payer MEDICARE, MEDICAID ==
[~2021-08-09] VITALS: Ht 182.9 cm; Wt 140.1 kg
[~2021-08-09 12:20] MED LIST changes: +CARV25TA PO; +LISI10TA16 PO; +multivitamin PO
--- NOTE | 2021-08-09 13:56 | PHYS DOC ---
Past History Past Medical History: Arrhythmia, CAD, CHF, Hypertension, [place], Other Additional Past Medical Histor: plantar fasciitis, arrhythmia;morbid obesity;nonischemic cardiomyopathy;vta (ESAU COHEN APRN) Past Surgical History: Hysterectomy, Pacemaker, Other Additional Past Surgical Histo: lead from pacemaker to her heart fixed x2 (ESAU COHEN APRN) Smoking: Non-smoker Alcohol Use: None Drug Use: None (ESAU COHEN APRN) Adult General Chief Complaint Chief Complaint: RECTAL BLEED HPI HPI Patient is a 56-year-old female who presents with burgundy stool x1 approximately 2 hours ago. She states that this happened 1 week ago, but with less color in toilet. She denies any blood clots. Patient denies nausea, vomiting, diarrhea. She denies shortness of breath or chest pain. Patient states that she feels weaker than usual. She endorses blood transfusion x1 after a hysterectomy years ago. She denies history of hemorrhoids. (ESAU COHEN APRN) Review of Systems Review of Systems Constitutional: Denies fever or chills Eyes: Denies change in visual acuity HENT: Denies nasal congestion or sore throat Respiratory: Denies cough or shortness of breath Cardiovascular: Denies chest pain or edema GI: Denies abdominal pain, nausea, vomiting, or diarrhea. : Denies dysuria Musculoskeletal: Denies back pain or joint pain Integument: Denies rash Neurologic: Denies headache, focal weakness or sensory changes All other systems were reviewed and found to be within normal limits, except as documented in this note. (ESAU COHEN APRN) Allergies Allergies Allergies Coded Allergies Type Severity Reaction Last Updated Verified No Known Drug Allergies 05/07/21 No (ESAU COHEN APRN) Physical Exam Physical Exam Constitutional: Well developed, well nourished, no acute distress, non-toxic appearance. [] HENT: Normocephalic, atraumatic, bilateral external ears normal, oropharynx moist, no oral exudates, nose normal. [] Eyes: PERRLA, EOMI, conjunctiva normal, no discharge. [] Neck: Normal range of motion, no tenderness, supple, no stridor. [] Cardiovascular:Heart rate regular rhythm, no murmur [] Lungs & Thorax: Bilateral breath sounds clear to auscultation [] Abdomen: Bowel sounds normal, soft, no tenderness, no masses, no pulsatile masses. [] Skin: Warm, dry, no erythema, no rash. [] Back: No tenderness, no CVA tenderness. [] Extremities: No tenderness, no cyanosis, no clubbing, ROM intact, no edema. [] Neurologic: Alert and oriented X 3, normal motor function, normal sensory function, no focal deficits noted. [] Psychologic: Affect normal, judgement normal, mood normal. [] (ESAU COHEN APRN) Current Patient Data Vital Signs Vital Signs Date Time Temp Pulse Resp B/P (MAP) Pulse Ox O2 Delivery O2 Flow Rate FiO2 08/09/21 12:44 98.2 60 16 157/71 (99) 96 (ESAU COHEN APRN) EKG EKG [] (ESAU COHEN APRN) Radiology/Procedures Radiology/Procedures [] Impressions: Signed PATIENT: DANAE DIALLO VACCOUNT: [id number] : 1965 LOCATION: ER AGE: 56 SEX: F EXAM STATUS: REG ER ORD. PHYSICIAN: RG CABRERA DO REASON: rectal bleeding PROCEDURE: CT ABD PELV W/ IV CONTRST ONLY Axial CT of the abdomen and pelvis were obtained after the administration of 75 cc intravenous contrast. Oral contrast was also administered. Coronal and sagittal reformats are also available. Indication: Rectal bleeding. Comparison: None. Findings: 6 is negatively to partially identified. There is left basilar atelectasis. Lung bases are clear. The heart is enlarged. Liver, spleen, gallbladder, adrenals pancreas are unremarkable in appearance. Multiple cystic lesions are identified in the kidney. There is an exophytic hyperdense lesion in the left mid pole kidney laterally measuring 1.8 x 1.0 cm. The stomach, small and large bowel are nondistended. The appendix is visualized and is unremarkable in appearance. No significant sigmoid diverticula. No pathologic wall thickening. No free air-fluid. Retroperitoneal or mesenteric lymphadenopathy. Incidental note is made of a retroaortic left renal vein. Abdominal aorta is nonaneurysmal. Portal, superior mesenteric and splenic veins are normal. Urinary bladder is not distended. There is age-appropriate degenerative change of the lumbar spine with accentuated lordosis. IMPRESSION: 1. Multiple cysts identified in bilateral kidneys. There is a hyperdense cystic lesion in the left lateral kidney. Ultrasound is recommended to evaluate the internal contents of this lesion. Could be solid mass versus hemorrhagic complex cyst. Exposure: One or more of the following individualized dose reduction techniques were utilized for this examination: 1. Automated exposure control 2. Adjustment of the mA and/or kV according to patient size 3. Use of iterative reconstruction technique Electronically signed by: Omid Ruiz MD (08/09/2021 2:34 PM) [facility] DICTATED AND SIGNED BY: OMID RUIZ MD DATE: 08/09/21 1421 (ESAU COHEN APRN) Heart Score C/O Chest Pain: No Risk Factors: Risk Factors: DM, Current or recent (<one month) smoker, HTN, HLP, family history of CAD, obesity. Risk Scores: Risk Factors: DM, Current or recent (<one month) smoker, HTN, HLP, family hist ory of CAD, obesity. (ESAU COHEN APRN) Course & Med Decision Making Course & Med Decision Making 56-year-old female presents with rectal bleeding this morning. She noticed a burgundy color in the toilet x1 approximately 2 hours ago. She states that this happened about a week ago as well, but was not as severe. She denies any abd ominal pain, nausea, vomiting, diarrhea. She endorses fatigue beginning today. Blood work, fecal occult, and CT scan ordered. CT showed multiple cysts in bilateral kidneys. There is a hyperdense cystic lesion in the left lateral kidney. Ultrasound recommended to evaluate the internal contents of this lesion. Could be a solid mass versus a hemorrhagic complex cyst. Blood work showed hemoglobin and hematocrit are stable. Fecal occult was positive. The patient has not had any bloody stool since arrival. Discussed option of admission, or discharge and following up with PCP tomorrow for repeat hemoglobin and hematocrit. The patient opted for Protonix in ED, along with prescription for home, and following up with her PCP tomorrow for repeat lab work. Discussed returning to ED if continued bleeding occurs or worsening of condition. Patient understands and agrees to return if needed. [] (ESAU COHEN APRN) Dragon Disclaimer Dragon Disclaimer This electronic medical record was generated, in whole or in part, using a voice recognition dictation system. (ESAU COHEN APRN) Attending Co-Sign The patient was seen and interviewed as well as examined at the bedside. The chart was reviewed. The case was discussed. Agree with the plan of care. (RG CABRERA DO) Departure Departure: Impression: Primary Impression: GI bleed Disposition: HOME / SELF CARE / HOMELESS Condition: STABLE Referrals: AIDAN GHOTRA MD (PCP) Patient Instructions: Gastrointestinal Bleeding Additional Instructions: You were seen and examined in the ED today for a burgundy, bloody stool today. Your blood count was normal, however your fecal occult test was positive for gastrointestinal bleeding. Please be sure and follow up with your primary care doctor tomorrow for repeat blood work to check your blood count levels. We will give you a dose of IV medication today and a prescription for Protonix for the next month. Please return to the ED if your symptoms worsen and/or bleeding continues. Scripts Pantoprazole Sodium (PROTONIX) 40 Mg Tablet.dr 1 TAB PO DAILY for GI bleed for 30 Days, #30 TAB 0 Refills Prov: ESAU COHEN APRN 08/09/21 Pantoprazole Sodium (PROTONIX) 40 Mg Tablet.dr 1 TAB PO DAILY for gi bleed MDD 40mg for 30 Days, #30 TAB Take one tablet daily x 30 days Prov: ESAU COHEN APRN 08/09/21 Problem Qualifiers Primary Impression: GI bleed Gastritis type: unspecified gastritis ESAU COHEN APRN Aug 09, 2021 13:55 RG CABRERA DO Aug 11, 2021 07:14
[2021-08-09] MEDS ORDERED: IOHEXOL 300 MG/ML 75 ML VIAL. IV ONE (14:00)
[2021-08-09 14:15] LABS: BASO # 0.1 x10^3/uL (0.0-0.2); BASO % 1 % (0-3); EOS # 0.1 x10^3/uL (0.0-0.7); EOS % 2 % (0-3); HEMATOCRIT 32.3 % (36.0-47.0); HEMOGLOBIN 10.7 g/dL (12.0-15.5); LYMPH # 1.8 x10^3/uL (1.0-4.8); LYMPH % 29 % (24-48); MEAN CORPUSCULAR HEMOGLOBIN 31 pg (25-35); MEAN CORPUSCULAR HGB CONC 33 g/dL (31-37); MEAN CORPUSCULAR VOLUME 94 fL (79-100); MONO # 0.7 x10^3/uL (0.0-1.1); MONO % 11 % (0-9); NEUT # 3.6 x10^3uL (1.8-7.7); NEUT % 57 % (31-73); PLATELET COUNT 163 x10^3/uL (140-400); RED BLOOD COUNT 3.46 x10^6/uL (3.50-5.40); RED CELL DISTRIBUTION WIDTH 14.2 % (11.5-14.5); WHITE BLOOD COUNT 6.2 x10^3/uL (4.0-11.0)
[2021-08-09 14:27] LABS: CALCIUM 9.2 mg/dL (8.5-10.1); CREATININE 1.6 mg/dL (0.6-1.0); GFR 40.6; POTASSIUM 4.3 mmol/L (3.5-5.1)
[2021-08-09 14:32] LABS: ALBUMIN 3.9 g/dL (3.4-5.0); ALBUMIN/GLOBULIN RATIO 1.1 (1.0-1.7); TOTAL BILIRUBIN 0.5 mg/dL (0.2-1.0); TOTAL PROTEIN 7.6 g/dL (6.4-8.2)
--- NOTE | 2021-08-09 14:37 | RAD ---
Axial CT of the abdomen and pelvis were obtained after the administration of [address] Oral contrast was also administered. Coronal and sagittal reformats are also available. Indication: Rectal bleeding. Comparison: None. Findings: 6 is negatively to partially identified. There is left basilar atelectasis. Lung bases are clear. The heart is enlarged. Liver, spleen, gallbladder, adrenals pancreas are unremarkable in appearance. Multiple cystic lesions are identified in the kidney. There is an exophytic hyperdense lesion in the left mid pole kidney la terally measuring 1.8 x 1.0 cm. The stomach, small and large bowel are nondistended. The appendix is visualized and is unremarkable i n appearance. No significant sigmoid diverticula. No pathologic wall thickening. No free air-fluid. R etroperitoneal or mesenteric lymphadenopathy. Incidental note is made of a retroaortic left renal vei n. Abdominal aorta is nonaneurysmal. Portal, superior mesenteric and splenic veins are normal. Urinar y bladder is not distended. There is age-appropriate degenerative change of the lumbar spine with accentuated lordosis. IMPRESSION: 1. Multiple cysts identified in bilateral kidneys. There is a hyperdense cystic lesion in the left la teral kidney. Ultrasound is recommended to evaluate the internal contents of this lesion. Could be so lid mass versus hemorrhagic complex cyst. Exposure: One or more of the following individualized dose reduction techniques were utilized for thi s examination: 1. Automated exposure control 2. Adjustment of the mA and/or kV according to patient size 3. Use of iterative reconstruction technique Electronically signed by: Omid Ruiz MD (08/09/2021 2:34 PM) [facility]
[2021-08-09 14:42] VITALS: BP 139/85
[2021-08-09 14:51] LABS: FECAL OB PT POSITIVE (NEG)
[2021-08-09] MEDS ORDERED: PANTOPRAZOLE IV 80 MG in IV NORMAL SALINE 100ML 100 ML IV ONE (15:30)
[2021-08-09] MEDS ORDERED: PANTOPRAZOLE IV 40 MG VIAL. ONE (15:44)
[2021-08-09] MEDS ORDERED: IV NORMAL SALINE 100ML 100 ML ONE (15:44)
[2021-08-09] MEDS ORDERED: PANT40TA3 PO ×2 (15:59→16:35)
== END 2021-08-09 16:24 | disposition home or self-care (01) ==
LOC: ER 12:20
DX: K92.2 Gastrointestinal hemorrhage, unspecified (principal); I25.10 Atherosclerotic heart disease of native coronary artery without angina pectoris; I11.0 Hypertensive heart disease with heart failure; I50.9 Heart failure, unspecified; I25.2 Old myocardial infarction; E66.01 Morbid (severe) obesity due to excess calories; Z68.41 Body mass index [BMI] 40.0-44.9, adult; Z95.0 Presence of cardiac pacemaker
CPT/HCPCS: 36415; 74177; 80053; 82274; 85025; 96365; 99285; C9113; Q9967

== ENCOUNTER 2021-08-13 22:38 | Emergency (ER) | payer MEDICARE, MEDICAID ==
[~2021-08-13] VITALS: Ht 182.9 cm; Wt 136.0 kg
[~2021-08-13 22:38] MED LIST changes: +PANT40TA3 PO
[2021-08-13 23:12] VITALS: BP 129/50
[2021-08-13] MEDS ORDERED: IV NORMAL SALINE 1,000ML 1,000 ML IV ONE (23:45)
--- NOTE | 2021-08-14 00:43 | PHYS DOC ---
Past History Past Medical History: Arrhythmia, CAD, CHF, Hypertension, OR, Other Additional Past Medical Histor: plantar fasciitis, arrhythmia;morbid obesity;nonischemic cardiomyopathy;vta Past Surgical History: Hysterectomy, Pacemaker, Other Additional Past Surgical Histo: lead from pacemaker to her heart fixed x2 Smoking: Non-smoker Alcohol Use: None Drug Use: None General Adult EDM: Chief Complaint: ABDOMINAL PAIN HPI: HPI: Patient is a 56-year-old female who presents to the ED with abdominal discomfort and dark tarry stools x1 week. Patient states that her symptoms started ~10 days ago, nothing has made them better, symptoms worsen when she has a bowel movement. Patient denies any other associated symptoms or radiation of pain / discomfort. Patient states that she was recently seen in this ER last Sunday for the same complaint Review of Systems: Review of Systems: Constitutional: Complains of overall weakness, denies fever or chills Eyes: Denies redness or eye pain HENT: Denies nasal congestion or sore throat Respiratory: Denies cough or shortness of breath Cardiovascular: Denies chest pain or palpitations GI: complains of abdominal discomfort, denies nausea or vomiting : Denies dysuria or hematuria Musculoskeletal: Denies back pain or joint pain Integument: Denies rash or skin lesions Neurologic: Denies headache, focal weakness or sensory changes Complete systems were reviewed and found to be within normal limits, except as documented in this note. 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 No significant internal hemorrhoids noted. Skin: Warm, dry, no erythema, no rash Back: No tenderness, no CVA tenderness Extremities: No tenderness, ROM intact, no edema Neurologic: Alert and oriented X 3, normal motor function, normal sensory function, no focal deficits noted Psychologic: Affect normal, judgment normal Current Patient Data: Vital Signs: Vital Signs Date Time Temp Pulse Resp B/P (MAP) Pulse Ox O2 Delivery O2 Flow Rate FiO2 08/13/21 23:12 97.8 61 20 129/50 (76) 98 Room Air EKG: EKG: [] Radiology/Procedures: Radiology/Procedures: [] Heart Score: C/O Chest Pain: N/A Course & Med Decision Making: Course & Med Decision Making Pertinent Labs and Imaging studies reviewed. (See chart for details) Patient presents to ER with a chief complaint of melena and increased weakness since her last visit to the ER six days prior. Repeat labs obtained and posted to chart. H/H stable. Recent CT abd/pelvis reviewed without acute process. Rectal exam performed with hard stool noted in rectal vault. and extgernal hemorrhoids. LIkely some inter Bright red blood noted. External hemorrhoids noted. Likely some internal hemorrhoids too. Patient stable for discharge with outpatient follow-up with PCP. Discussed findings and plan with patient, who acknowledges understanding and agreement. Dragon Disclaimer: Dragon Disclaimer: This electronic medical record was generated, in whole or in part, using a voice recognition dictation system. Departure Departure: Impression: Primary Impression: GI bleed Qualified Codes: K92.2 - Gastrointestinal hemorrhage, unspecified Disposition: HOME / SELF CARE / HOMELESS Condition: STABLE Referrals: AIDAN GHOTRA MD (PCP) CAROLINE CHAO MD Patient Instructions: Gastrointestinal Bleeding, [id number], Rectal Bleeding, [id number] Additional Instructions: Continue previously prescribed antiacid medication. Increase fluid hydration. You would benefit from a follow-up with GI specialist. Please call and make an appointment on Sunday. Scripts Hydrocortisone Acetate (ANUSOL-HC) 25 Mg Supp.rect 1 SUPP RC BID for Hemorrhoids for 7 Days, #14 SUPP 0 Refills Prov: DEBBIE VELÁSQUEZ DO 08/14/21 Sennosides/Docusate Sodium (Colace 2-in-1 Tablet) 1 Each Tablet 1 TAB PO QHS for Constipation, #30 TAB 0 Refills Prov: DEBBIE VELÁSQUEZ DO 08/14/21 DEBBIE VELÁSQUEZ DO Aug 14, 2021 00:43
[2021-08-14 01:14] LABS: BACTERIA,URINE FEW /HPF (0-FEW); BILIRUBIN,URINE NEG (NEG); CLARITY,URINE CLEAR; COLOR,URINE YELLOW; GLUCOSE,URINE NEG (NEG); NITRITE,URINE NEG (NEG); SQUAMOUS EPITHELIAL CELL,UR OCC /LPF; UROBILINOGEN,URINE 0.2 mg/dL (0.2 mg/dL)
[2021-08-14] MEDS ORDERED: SENN-121 PO (02:02)
[2021-08-14] MEDS ORDERED: HYDR25SU18 RC (02:02)
== END 2021-08-14 02:22 | disposition home or self-care (01) ==
LOC: ER 22:38
DX: K92.2 Gastrointestinal hemorrhage, unspecified (principal); I25.10 Atherosclerotic heart disease of native coronary artery without angina pectoris; I11.0 Hypertensive heart disease with heart failure; I50.9 Heart failure, unspecified; I25.2 Old myocardial infarction; E66.01 Morbid (severe) obesity due to excess calories; Z68.41 Body mass index [BMI] 40.0-44.9, adult; Z95.0 Presence of cardiac pacemaker
CPT/HCPCS: 36415; 80053; 81001; 83690; 83735; 85025; 85610; 85730; 96360; 99284; J7030